=== PATIENT | female | born 1965 | race Caucasian/White ===

== ENCOUNTER → 2018-09-09 08:54 | Emergency (ER) | payer OTHER ==
[~2018-09-09 08:54] MED LIST: Ciprofloxacin TAB* 250 MG PO ONE; Iohexol 300* (CONTRAST) 10 ML SDV IV ONE; Morphine INJ* 4 MG/ML 1 ML SYRINGE (NEW SYRINGE VERSION) IV ONE; NS 0.9% 1000 ML* 1,000 ML IV ONE; Ondansetron INJ* 2 MG/ML VIAL IV ONE; metroNIDAZOLE TAB* 250 MG PO ONE
--- OUTSIDE RECORDS SUMMARY | 2018-09-09 09:45 | XMS REPORT | Continuity of Care Document ---
:1965 External Reference #:[id number] Author Name Kyle Puentes Care Team Providers Name Role Phone Domi Tapia MD Care Team Information Chief Lifestyle Officer Unavailable Nacho Barrios MD Primary Care Physician Unavailable Payers Type Date Identification Numbers Payment Provider Subscriber Policy Number: [id number] [facility] Mackenzie Piedra PayID: [id number] [address] [place] [address] Advance Directives Description No Information Available Problems Date Description Provider Status Onset: 06/15/2018 Common variable agammaglobulinemia Hilario Rose MD Active Family History Description No Information Available Social History Type Date Description Comments Sex Unknown Allergies, Adverse Reactions, Alerts Date Description Reaction Status Severity Comments 06/15/2018 Penicillin Active Sensitivity Medications Medication Date Status Form Strength Qnty SIG Indications Ordering Provider Lansoprazole Active Capsules DR 15mg 1 by Unknown /0000 mouth every day Valacyclovir HCL Active Tablets 500mg Once a Unknown /0000 day Levothyroxine Active Tablets 50mcg 1 by Unknown Sodium /0000 mouth every day Cholestyramine Active Packet 4gm once a Unknown Light /0000 day Sumatriptan Active Solution 20mg/Act [place] in Unknown /0000 nostril daily prn Hydrochlorothiazide Active Tablets 25mg once a Unknown /0000 day Fluticasone Active Suspension 50mcg/Act spray 2 Unknown Propionate /0000 sprays in each nostril daily Clonazepam Active Tablets 1mg prn Unknown /0000 Dispers Trintellix Active Tablets 20mg Once a Unknown /0000 day Prazosin HCL Active Capsules 1mg 2mg at Unknown /0000 bedtime Norethindrone Active Tablets 0.35mg Unknown / Probiotic Active Capsules Unknown Acidophilus 0000 Vitamin C Active Capsules 500-400mg Unknown W/Vitamin E /0000 -Unit Buspirone HCL Active Tablets 10mg Unknown /0000 Melatonin Active Capsules 10mg 1 by Unknown /0000 mouth every night at bedtime with added L-theani ne Bupropion HCL Active Tablets 2 tabs Unknown /0000 once a day by mouth Immunizations CPT Code Status Date Vaccine Lot # [id number] Given 06/15/2018 Pneumococcal Vaccine 2Yrs Or Older [id number] Vital Signs Date Vital Result Comment 08/24/2018 9:40am BP Systolic 132 mmHg 68 Height 61 inches 5'1" Weight 300.00 lb BMI (Body Mass Index) 56.7 kg/m2 Heart Rate 94 /min Respiratory Rate 18 /min O2 % BldC Oximetry 97 % 08/03/2018 8:32am BP Systolic 116 mmHg BP Diastolic 82 mmHg Height 61 inches 5'1" Weight 295.00 lb BMI (Body Mass Index) 55.7 kg/m2 Heart Rate 86 /min Respiratory Rate 16 /min Body Temperature 98.6 F O2 % BldC Oximetry 98 % 06/15/2018 9:19am BP Systolic 130 mmHg BP Diastolic 82 mmHg Height 61 inches 5'1" Weight 295.00 lb BMI (Body Mass Index) 55.7 kg/m2 Heart Rate 98 /min Respiratory Rate 19 /min Body Temperature 98.1 F O2 % BldC Oximetry 97 % Results Description No Information Available Procedures Description No Information Available Encounters Type Date Location Provider Dx Diagnosis Office Visit 08/03/2018 TIMBO Aiken D83.8 Other common variable 8:30a immunodeficiencies Office Visit 06/15/2018 Luis Fernando Daigle3.8 Other common variable 9:00a MD [place] immunodeficiencies Plan of Treatment 08/03/2018 - Vijay Mcfarland PAD83.8 Other common variable immunodeficienciesComments:Patient with common variable immune deficiency. Patient's total IgG is 377 mg/dL. Patient had a positive response to tetanus and diphtheria. Patient did not show any significant increased titer to post- pneumococcal vaccine.Patient is a candidate for Gamunex IVIG infusion, 55 g, monthly. Patient understands and agrees to receive monthly antibody infusions ( approx duration, 3 hours) to boost her immune system. We will seek prior authorization from her insurance company to begin this process.Patient to follow up with Dr. Tapia on 08/25/18. Greater than 50% of the 25-minute visit was spent in discussion of the testing results and treatment options.
--- OUTSIDE RECORDS SUMMARY | 2018-09-09 09:45 | XMS REPORT ---
:1965 External Reference #:[id number] Author Organization [employer] Address [address] [place] [address] [place] [address] Phone [phone] Care Team Providers Name Role Phone Nacho Barrios MD Primary Care Physician Unavailable Payers Type Date Identification Numbers Payment Provider Subscriber Commercial Policy Number: [id number] Marcelino Piedra Group Number: [id number] [address] PayID: [id number] [place] [address] Problems Description No Information Family History Date Family Member(s) Problem(s) Comments Father Sleep Apnea Father Heart Disease Father Hypertension Father Hypercholesterolemia Father Obesity Father Prostate Cancer Mother Lymphoma Hx of since 1994 Siblings 3 2 brothers and 1 sister. Sister has 3 lung nodules Social History Type Date Description Comments Marital Status Lives With Alone Occupation Disabled Cigarette Use Former Cigarette Smoker Smoked 1/2 ppd for 5 years ETOH Use Denies alcohol use Smoking Patient is a former smoker Recreational Drug Use Denies Drug Use Daily Caffeine Does Not Consume Caffeine Exercise Type/Frequency Exercises rarely Allergies, Adverse Reactions, Alerts Date Description Reaction Status Severity Comments 04/18/2018 Penicillin active 04/18/2018 Sulfa Antibiotics active Medications Medication Date Status Form Strength Qnty SIG Indications Ordering Provider Valacyclovir HCL Active Tablets 500mg 1 tab po Unknown /0000 qd Levothyroxine Active Tablets 75mcg 1 tab qam Unknown Sodium /0000 Cholestyramine Active Packet 4gm 1 packet Unknown /0000 by mouth as directed and by mouth daily Sumatriptan Active Solution 20mg/Act spray 20mg Unknown /0000 in nose daily prn for migraines Fluticasone Active Suspension 50mcg/Act 2 sprays Unknown in nostrils daily Clonazepam Active Tablets 1mg 1 tab po prn Trintellix Active Tablets 20mg 1 po qd Prazosin HCL Active Capsules 1mg 2mg every bedtime prn for PTSD/night bauer Lansoprazole Active Capsules DR 15mg 1 by mouth every day Hydrochlorothiazi Active Tablets 25mg 1 by mouth Unknown every day prn Marly Active Tablets 0.35mg 1 qd Melatonin Active Tablets 1 tab by mouth daily at bedtime Vitamin C Active Tablets 500mg 1 by mouth every day Probiotic Active Capsules 1 by mouth every day Bupropion HCL Active Tablets 10mg take one tablet by mouth twice a day Vital Signs Date Vital Result Comment 08/25/2018 Height 61 inches 5'1" Weight 299.38 lb Heart Rate 84 /min BP Systolic Sitting 116 mmHg Rue large cuff BP Diastolic Sitting 84 mmHg Rue large cuff Respiratory Rate 16 /min O2 % BldC Oximetry 97 % BMI (Body Mass Index) 56.6 kg/m2 07/07/2018 Height 61 inches 5'1" Weight 299.00 lb Heart Rate 104 /min BP Systolic Sitting 110 mmHg BP Diastolic Sitting 64 mmHg Respiratory Rate 14 /min O2 % BldC Oximetry 96 % BMI (Body Mass Index) 56.5 kg/m2 05/23/2018 Height 61 inches 5'1" Weight 293.00 lb Heart Rate 80 /min BP Systolic Sitting 118 mmHg BP Diastolic Sitting 78 mmHg Respiratory Rate 14 /min O2 % BldC Oximetry 96 % BMI (Body Mass Index) 55.4 kg/m2 04/18/2018 Height 61 inches 5'1" Weight 294.00 lb Heart Rate 64 /min BP Systolic Sitting 116 mmHg BP Diastolic Sitting 80 mmHg Respiratory Rate 14 /min O2 % BldC Oximetry 97 % BMI (Body Mass Index) 55.5 kg/m2 Neck Circumference in inches 19 Results Test Date Test Result H/L Range Note Laboratory test finding 05/03/2018 Point of Care Glucose 93 mg/dL 70-100 1 Laboratory test finding 04/18/2018 Anti Nuclear Antibody 0.1 U 2 Anca Panel For Vasculitis 04/18/2018 Myeloperoxidase AB < 0.2 U 3 Proteinase 3 AB < 0.2 U 4 Laboratory test finding 04/18/2018 Angiotensin Converting Enzyme 33 U/L 8 - 53 5 Aspergillus Igg Antibodies TNP () 6 CBC Auto Diff 04/18/2018 White Blood Count 7.4 10^3/uL 3.5-10.8 Red Blood Count 4.87 10^6/uL 4.0-5.4 Hemoglobin 13.8 g/dL 12.0-16.0 Hematocrit 40 % 35-47 Mean Corpuscular Volume 83 fL 80-97 Mean Corpuscular Hemoglobin 28 pg 27-31 Mean Corpuscular HGB Conc 34 g/dL 31-36 Red Cell Distribution Width 14 % 10.5-15 Platelet Count 247 10^3/uL 150-450 Mean Platelet Volume 8.0 um3 7.4-10.4 Abs Neutrophils 4.4 10^3/uL 1.5-7.7 Abs Lymphocytes 2.3 10^3/uL 1.0-4.8 Abs Monocytes 0.4 10^3/uL 0-0.8 Abs Eosinophils 0.2 10^3/uL 0-0.6 Abs Basophils 0.1 10^3/uL 0-0.2 Abs Nucleated RBC 0 10^3/uL Granulocyte % 60.2 % 38-83 Lymphocyte % 31.2 % 25-47 Monocyte % 5.8 % 0-7 Eosinophil % 2.1 % 0-6 Basophil % 0.7 % 0-2 Nucleated Red Blood Cells % 0 Laboratory test finding 04/18/2018 Anti Ssa/Ro <0.2 U 7 Anti SSB LA <0.2 U 8 C Reactive Protein 12.30 mg/L High < 5.00 9 Centromere Auto Abs <0.2 U 10 Hypersensitivity Pneumonitis 04/18/2018 Aspergillus fumigatus 18.9 mg/L < =102 11 IgG Ab Micropolyspora faeni IgG Ab 2.6 mg/L <=13.2 12 Thermoactinomyces vulgaris IgG 4.4 mg/L <=23.9 13 Quantiferon Gold TB 04/18/2018 QuantiFERON-Tb Gold Plus Negative Negative 14 TB1 Ag minus Nil Result 0 IU/mL TB2 Ag minus Nil Result 0.01 IU/mL TB Mitogen minus Nil Result > 10.00 IU/mL TB Nil Result 0.02 IU/mL 15 Laboratory test finding 04/18/2018 Rheumatoid Factor < 10 IU/mL <15 Immunoglobulins Serum Quant 04/18/2018 Immunoglobulin G 396 mg/dL 767 - 1590 16 Immunoglobulin M 210 mg/dL 37 - 286 Immunoglobulin A 42 mg/dL 61 - 356 Scleroderma AB (SCL70) 04/18/2018 Scleroderma Ab <0.2 U 17 1 Global Ceo: [id number] 2 REFERENCE VALUE <=1.0 (Negative) Test Performed by: [address] [address] 3 REFERENCE VALUE <0.4 (Negative) 4 REFERENCE VALUE <0.4 (Negative) Test Performed by: [address] [address] 5 Test Performed by: [address] [address] 6 Cancelled due to duplicate test on this order Test Performed by: [address] [address] 7 REFERENCE VALUE <1.0 (Negative) Test Performed by: [address] [address] 8 REFERENCE VALUE <1.0 (Negative) Test Performed by: [address], [place] [address] 9 Acute inflammation: >10.00 10 REFERENCE VALUE <1.0 (Negative) Test Performed by: [facility] - [address] [address] 11 ADDITIONAL INFORMATION This test was developed and its performance characteristics determined by [facility] in a manner consistent with CLIA requirements. This test has not been cleared or approved by the U.S. Food and Drug Administration. 12 ADDITIONAL INFORMATION This test was developed using an analyte specific reagent. Its performance characteristics were determined by [facility] in a manner consistent with CLIA requirements. This test has not been cleared or approved by the U.S. Food and Drug Administration. 13 ADDITIONAL INFORMATION This test was developed using an analyte specific reagent. Its performance characteristics were determined by [facility] in a manner consistent with CLIA requirements. This test has not been cleared or approved by the U.S. Food and Drug Administration. Test Performed by: [facility] - [address] [address] 14 No interferon-gamma response to M. tuberculosis antigens was detected. Infection with M. tuberculosis is unlikely. A single negative result does not exclude infection with M. tuberculosis. In patients at high risk for M.tuberculosis infection, a second test should be considered in accordance with the 2017 ATS/IDSA/CDC Clinical Practice Guidelines for Diagnosis of Tuberculosis in Adults and Children [Eveline RUBIN et. al. Clin. Infect. Dis. 2017;64(2):111-115]. 15 Test Performed by: [facility] [employer] - [facility] [address] [place] [address] 16 Test Performed by: [facility] [address] [place] [address] 17 REFERENCE VALUE <1.0 (Negative) Test Performed by: [facility] [address] [place] [address] Procedures Date CPT Code Description Status 06/22/2018 73212 Polysomnography Sleep Staging 4+ Parameters Completed Encounters Type Date Location Provider CPT E/M Dx Office Visit 07/07/2018 [facility] [address] G47.33 8:30a [facility] J98.4 Z68.43 Office Visit 05/23/2018 9:15a [facility] [address] J98.4 [facility] D80.8 K21.9 R06.83 Z68.43 Office Visit 04/18/2018 7:30a [facility] [address] J98.4 [facility] R06.83 E66.01 K21.9 Z68.43 Plan of Care Future Appointment(s):12/08/2018 1:45 pm - Domi Tapia MD at [facility]08/25/2018 - Domi Tapia MDJ98.4 Other disorders of lungFollow up:3 months , CT chest pfdtoJ45.33 Obstructive sleep apnea (adult ) (pediatric)Z68.43 Body mass index (BMI) 50-59.9 , adult
--- OUTSIDE RECORDS SUMMARY | 2018-09-09 09:45 | XMS REPORT | Continuity of Care Document ---
:1965 External Reference #:[id number] Author Name Hilario Rose MD Address [address] [place] [address] Care Team Providers Name Role Phone Domi Tapia MD Care Team Information Ground Crewman Unavailable Nacho Barrios MD Primary Care Physician Unavailable Payers Type Date Identification Numbers Payment Provider Subscriber Policy Number: [id number] [facility] Mackenzie Piedra PayID: [id number] [address] [place] [address] Advance Directives Description No Information Available Problems Date Description Provider Status Onset: 06/15/2018 Common variable agammaglobulinemia Hilario Rose MD Active Family History Description No Information Available Social History Type Date Description Comments Sex Unknown Smoke-Free Home is smoke-free Pets 1 cat Tobacco Use Start: Unknown Patient has never smoked Tobacco Use Start: Unknown No Second Hand Smoke Exposure Smoking Status Reviewed: 08/24/18 No Second Hand Smoke Exposure Allergies, Adverse Reactions, Alerts Date Description Reaction [...] Light /0000 day Sumatriptan Active Solution 20mg/Act [place] in Unknown /0000 nostril daily prn Hydrochlorothiazide Active Tablets 25mg once a Unknown / day Fluticasone Active Suspension 50mcg/Act spray 2 Unknown Propionate sprays in each nostril daily Clonazepam Active Tablets 1mg prn Dispers Trintellix Active Tablets 20mg Once a Unknown day Prazosin HCL Active Capsules 1mg 2mg at Unknown bedtime Norethindrone Active Tablets 0.35mg Unknown Probiotic Active Capsules Unknown Acidophilus 0000 Vitamin C Active Capsules 500-400mg Unknown W/Vitamin E /0000 -Unit Buspirone HCL Active Tablets 10mg Unknown Melatonin Active Capsules 10mg 1 by Unknown / mouth every night at bedtime with added L-theani ne Bupropion HCL Active Tablets 2 tabs Unknown / once a day by mouth Immunizations CPT Code Status Date Vaccine Lot # [id number] Given 06/15/2018 Pneumococcal Vaccine 2Yrs Or Older [id number] Vital Signs Date Vital Result Comment 08/24/2018 [...] Date Location Provider Dx Diagnosis Office Visit 08/24/2018 Luis Fernando Paige D83.8 Other common variable 9:30a MD [place] immunodeficiencies Office Visit 08/03/2018 TIMBO Aiken D83.8 Other common variable 8:30a immunodeficiencies Office Visit 06/15/2018 Luis Fernando Paige D83.8 Other common variable 9:00a MD [place] immunodeficiencies Plan of Treatment No Information Available
--- NOTE | 2018-09-09 09:49 | ED ---
Abdominal Pain/Female - HPI Summary HPI Summary: Pt. is a 52-year-old female who presents emergency department for left lower quadrant abdominal pain times several days. Pt. states she has a history of diverticulitis and has had a perforation the past. Denies associated symptoms of fever, chills, nausea, vomiting, diarrhea. Symptoms are moderate in severity. Movement makes symptoms worse. Nothing makes symptoms better. - History of Current Complaint Chief Complaint: EDAbdPain Stated Complaint: ABD PAIN Time Seen by Provider: 09/09/18 09:03 Hx Obtained From: Patient Pain Intensity: 9 Allergies/Adverse Reactions: Allergies Allergy/AdvReac Type Severity Reaction Status Date / Time Penicillins Allergy Unknown Unknown Verified 09/09/18 09:47 Reaction Details Home Medications: Home Medications Ascorbic Acid TAB* [Vitamin C TAB*] 500 mg PO DAILY 09/09/18 [History Confirmed 09/09/18] Cholecalciferol CAP/TAB(NF) [Vitamin D3 CAP/TAB (NF)] 25 mcg PO DAILY 09/09/18 [ History Confirmed 09/09/18] Cholestyramine Resin* [Questran*] 4 gm PO DAILY PRN 09/09/18 [History Confirmed 09/09/18] Fluticasone NASAL SPRAY 50MCG* [Flonase NASAL SPRAY 50MCG*] 2 spray BOTH NARES DAILY 09/09/18 [History Confirmed 09/09/18] Hydrochlorothiazide TAB* [Hydrodiuril TAB*] 25 mg PO DAILY PRN 09/09/18 [ History Confirmed 09/09/18] Lactobacillus Acidophilus [Probiotic Acidophilus] 0.5 mg PO DAILY 09/09/18 [ History Confirmed 09/09/18] Levothyroxine TAB* [Synthroid TAB*] 75 mcg PO AC 09/09/18 [History Confirmed 11/15] Melatonin/Pyridoxine HCl (B6) [Melatonin] 1 tab PO BEDTIME 09/09/18 [History Confirmed 09/09/18] Norethindrone (NF) [Kailyn (NF)] 0.35 mg PO DAILY 09/09/18 [History Confirmed 09/09/18] Prazosin CAP* [Minipress CAP*] 2 mg PO BEDTIME 09/09/18 [History Confirmed 09/09] SUMAtriptan [Imitrex] 20 mg INTRANASAL DAILY PRN 09/09/18 [History Confirmed 11/15] ValACYclovir (*) [Valtrex 500 mg (*)] 500 mg PO DAILY 09/09/18 [History Confirmed 09/09/18] Vortioxetine (NF) [Trintellix (NF)] 20 mg PO DAILY 09/09/18 [History Confirmed 09/09/18] busPIRone TAB* [Buspar TAB*] 10 mg PO BID PRN 09/09/18 [History Confirmed ] clonazePAM TAB(*) [KlonoPIN TAB(*)] 1 mg PO BID PRN MDD 2 09/09/18 [History Confirmed 09/09/18] PMH/Surg Hx/FS Hx/Imm Hx Previously Healthy: Yes Endocrine/Hematology History: Reports: Hx Thyroid Disease - HYPO GI History: Reports: Hx Diverticulosis, Hx Gastroesophageal Reflux Disease, Hx Hiatal Hernia Sensory History: Denies: Hx Contacts or Glasses, Hx Hearing Aid - [facility] LEFT EAR Opthamlomology History: Denies: Hx Contacts or Glasses Neurological History: Reports: Hx Migraine - LAST ONE 8 MONTHS AGO Psychiatric History: Reports: Hx Anxiety, Hx Depression - Cancer History Hx Chemotherapy: No Hx Radiation Therapy: No - Surgical History Surgery Procedure, Year, and Place: SINUS SURGERY 1999 gb removed 2013. WISDOM TEETH REMOVAL 1988 Hx Anesthesia Reactions: No - Immunization History Immunizations Up to Date: Yes Infectious Disease History: No Infectious Disease History: Denies: Traveled Outside the [place] in Last 30 Days - Family History Known Family History: Positive: Other - noncontributory - Social History Occupation: Unemployed Lives: Alone Alcohol Use: None Substance Use Type: Reports: None Smoking Status (MU): Former Smoker Type: Cigarettes Length of Time of Smoking/Using Tobacco: APPROX 6 YEARS Have You Smoked in the Last Year: No Review of Systems Positive: Chills Cardiovascular: Negative Respiratory: Negative Positive: Abdominal Pain. Negative: Vomiting, Diarrhea, Nausea Genitourinary: Negative Negative: dysuria Neurological: Negative All Other Systems Reviewed And Are Negative: Yes Physical Exam Triage Information Reviewed: Yes Vital Signs On Initial Exam: Initial Vitals Temp Pulse Resp BP Pulse Ox 98.6 F 108 22 125/77 94 09/09/18 08:56 09/09/18 08:56 09/09/18 08:56 09/09/18 08:56 09/09/18 08:56 Vital Signs Reviewed: Yes Appearance: Positive: Well-Appearing - Patient lying in bed in no acute distress. Friend present. Skin: Positive: Warm, Dry Head/Face: Positive: Normal Head/Face Inspection Eyes: Positive: Normal, EOMI Neck: Positive: Supple Respiratory/Lung Sounds: Positive: Clear to Auscultation, Breath Sounds Present Cardiovascular: Positive: Normal, RRR Abdomen Description: Positive: Other: - Morbidly obese. Abdomen is soft with pain to palpation to the left lower quadrant and mildly to the right lower quadrant. No rebound tenderness or guarding. Neurological: Positive: Normal, CN Intact II-III Psychiatric: Positive: Affect/Mood Appropriate Diagnostics - Vital Signs Vital Signs Temp Pulse Resp BP Pulse Ox 09/09/18 09:34 18 09/09/18 08:56 98.6 F 108 22 125/77 94 - Laboratory Result Diagrams: 09/09/18 09:39 09/09/18 09:39 Lab Statement: Any lab studies that have been ordered have been reviewed, and results considered in the medical decision making process. Abdominal Pain Fem Course/Dx - Course Course Of Treatment: Pt. presenting to the ER for left lower quadrant abdominal pain. She is afebrile stable vital signs. She is well-appearing. Will patient IV fluids and give IV morphine for pain. Pending labs and CT scan for further evaluation. Labs are unremarkable other than elevated CRP. CT abd.pelvis per radiology: IMPRESSION: FINDINGS CONSISTENT WITH DIVERTICULITIS OF THE SIGMOID COLON WITHOUT EVIDENCE OF PERIDIVERTICULAR ABSCESS. PERICOLONIC INFILTRATION OF FAT AND FOCAL WALL THICKENING IS NOTED. Results were discussed with patient. She would like to try outpatient treatment at this time. Started on Cipro and Flagyl, hydrocodone for pain. Advised clear liquid diet. To call PCP for follow-up appointment on Wednesday. To return to ER over the weekend for increased pain, fever, vomiting or if concerned. Patient understands and agrees with plan. - Diagnoses Differential Diagnosis: Positive: Appendicitis, Constipation, Diverticulitis, Urinary Tract Infection Provider Diagnoses: Diverticulitis Discharge - Sign-Out/Discharge Documenting (check all that apply): Patient Departure - Discharge Plan Condition: Good Disposition: HOME Prescriptions: Ciprofloxacin TAB* [Cipro 500 MG TAB*] 500 mg PO BID #20 tab Hydrocodone/Acetaminophen [Hydrocodone/Acetaminophen 5-325 mg] 1 tab PO Q6H #12 tab MDD 4tablets metroNIDAZOLE [Flagyl 500 MG TAB] 500 mg PO TID #30 tab Patient Education Materials: Diverticulitis (ED), Diverticulitis Diet (ED) Referrals: Nacho Barrios MD [Primary Care Provider] - Additional Instructions: Schedule a follow up appointment with PCP on Wednesday Take medication as directed Clear liquid diet Return to ER for increased pain, fever, vomiting, or if concerned - Billing Disposition and Condition Condition: GOOD Disposition: Home
[2018-09-09 09:50] LABS: ABS Basophils 0.1 10^3/ul (0-0.2); ABS Eosinophils 0.2 10^3/ul (0-0.6); ABS Lymphocytes 1.7 10^3/ul (1.0-4.8); ABS Monocytes 0.4 10^3/ul (0-0.8); ABS Neutrophils 5.9 10^3/ul (1.5-7.7); ABS Nucleated RBC 0 10^3/ul; Eosinophil % 1.9 % (0-6); Hematocrit 39 % (35-47); Hemoglobin 13.4 g/dl (12.0-16.0); Lymphocyte % 20.4 % (25-47); Mean Corpuscular HGB Conc 34 g/dl (31-36); Mean Corpuscular Hemoglobin 28 pg (27-31); Mean Corpuscular Volume 81 fL (80-97); Mean Platelet Volume 7.8 um3 (7.4-10.4); Nucleated Red Blood Cells % 0.1; Platelet Count 225 10^3/ul (150-450); Red Blood Count 4.86 10^6/ul (4.00-5.40); Red Cell Distribution Width 14 % (10.5-15); White Blood Count 8.2 10^3/ul (3.5-10.8)
[2018-09-09 10:10] LABS: EGFR Non-African American 67.7 (>60)
[2018-09-09 11:07] LABS: Urine Appearance Cloudy; Urine Blood Negative (Negative); Urine Color Yellow; Urine Ketones Negative (Negative); Urine Protein Negative (Negative); Urine Specific Gravity 1.014 (1.010-1.030); Urine Urobilinogen Negative (Negative)
--- NOTE | 2018-09-09 12:36 | RAD ---
Indication: Left lower quadrant pain. Contrast: Administered 150.4 ml of OMNIPAQUE 300 mg/ml CT of the abdomen and pelvis was performed after oral and IV contrast administration. Coronal and sagittal reconstructed images were obtained. Comparison is made with previous exam dated August 28, 2016, prior PET/CT dated May 03, 2018. The lung bases demonstrate small nodules in the left lower lobe measuring up to 7 mm. Nodule in the right lower lobe measures up to 1.9 cm. Nodule right ovary the hemidiaphragm measures approximate 5 mm. Tiny nodule over the right hemidiaphragm is unchanged. The heart demonstrates no pericardial effusion. Liver is normal in size. There are no focal lesions or intrahepatic duct dilatation noted. The patient is status post cholecystectomy. The common duct is not dilated. The pancreas demonstrates no mass or pancreatic duct dilatation. The spleen is normal in size. No adrenal masses are noted. The kidneys demonstrate symmetric nephrograms without focal lesions. Aorta and inferior vena cava are unremarkable. No retroperitoneal adenopathy is noted. Evaluation of the pelvis demonstrates focal wall thickening of the sigmoid colon in the low pelvis towards the left. Reticulation of the adjacent fat is noted. No evidence of peridiverticular abscess is noted. The urinary bladder is unremarkable with no evidence of foci of air. The uterus is otherwise unremarkable. No adnexal masses are noted. The bony structures are grossly unremarkable. IMPRESSION: FINDINGS CONSISTENT WITH DIVERTICULITIS OF THE SIGMOID COLON WITHOUT EVIDENCE OF PERIDIVERTICULAR ABSCESS. PERICOLONIC INFILTRATION OF FAT AND FOCAL WALL THICKENING IS NOTED. THERE ARE MULTIPLE PULMONARY NODULES. THESE ARE ESSENTIALLY UNCHANGED SINCE PRIOR PET/CT DATED APRIL 2018.
[2018-09-09 13:50] VITALS: BP 107/75
== END | disposition home or self-care (01) ==
LOC: ED 08:54
DX: K57.32 Diverticulitis of large intestine without perforation or abscess without bleeding (principal); R91.1 Solitary pulmonary nodule; E03.9 Hypothyroidism, unspecified; G43.909 Migraine, unspecified, not intractable, without status migrainosus; F41.9 Anxiety disorder, unspecified; F32.9 Major depressive disorder, single episode, unspecified; Z90.49 Acquired absence of other specified parts of digestive tract; Z88.0 Allergy status to penicillin; Z87.891 Personal history of nicotine dependence
CPT/HCPCS: 36415; 74177; 80053; 81003; 83605; 83690; 85025; 86140; 87040; 96361; 96374; 96375; 99283; A9270-GY; J2270; J2405; Q9967

== ENCOUNTER 2020-03-14 17:02 | Emergency (ER) | payer OTHER ==
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
[2020-03-14] MEDS ORDERED: cefTRIAXone VIAL(*) 250 MG VIAL IM ONE (17:35)
[2020-03-14] MEDS ORDERED: Raltegravir* 400 MG TAB PO ONE ×2 (17:35→17:38)
[2020-03-14] MEDS ORDERED: metroNIDAZOLE TAB* 250 MG PO ONE (17:35)
[2020-03-14] MEDS ORDERED: Tenofovir/Emtricitab 200/300 * TAB PO ONE ×2 (17:35→17:37)
[2020-03-14] MEDS ORDERED: Azithromycin TAB* 250 MG PO ONE (17:35)
[2020-03-14] MEDS ORDERED: Ondansetron ODT TAB* 4 MG PO ONE (17:37)
[2020-03-14] MEDS ORDERED: Lidocaine 1% MPF ** 5 ML VIAL ONE (19:47)
[2020-03-14] MEDS ORDERED: metroNIDAZOLE * 500 MG TABLET PO ONE (20:00)
[2020-03-14 20:50] LABS: ABS Basophils 0.1 10^3/ul (0-0.2); ABS Eosinophils 0.2 10^3/ul (0-0.6); ABS Monocytes 0.6 10^3/ul (0-0.8); ABS Neutrophils 4.5 10^3/ul (1.5-7.7); Eosinophil % 2.5 %; Hematocrit 37 % (35-47); Hemoglobin 13.2 g/dL (12.0-16.0); Mean Corpuscular HGB Conc 35 g/dL (31-36); Mean Corpuscular Hemoglobin 28 pg (27-31); Mean Corpuscular Volume 79 fL (80-97); Mean Platelet Volume 8.1 fL (7.4-10.4); Platelet Count 241 10^3/uL (150-450); Red Blood Count 4.74 10^6 /uL (3.70-4.87); Red Cell Distribution Width 15 % (10-15); White Blood Count 7.4 10^3/uL (3.5-10.8)
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
[2020-03-14 21:09] LABS: Albumin 3.7 g/dL (3.2-5.2); Albumin/Globulin Ratio 1.3 (1-3); BUN/Creatinine Ratio 12.1 (8-20); EGFR African American 78.2 (>60); EGFR Non-African American 64.7 (>60); Globulin 2.8 g/dL (2-4); Potassium 3.8 mmol/L (3.5-5.0); Total Bilirubin 0.3 mg/dL (0.2-1.0); Total Protein 6.5 g/dL (6.4-8.9)
[2020-03-14 21:16] LABS: HCG Pregnancy 2.63 mIU/mL
[2020-03-14] MEDS ORDERED: Iohexol 300* (CONTRAST) 10 ML SDV IV ONE (21:54)
[2020-03-14 22:04] LABS: Hepatitis B Surface Antigen Nonreactive (Nonreactive)
[2020-03-14 22:21] LABS: Hepatitis B Surface Ab Immune (Immune); Hepatitis C Antibody Negative (Negative)
[2020-03-14] MEDS ORDERED: Sulfamethox/Trimethoprim DS 800/160* TAB PO ONE (22:59)
[2020-03-15 00:39] VITALS: BP 119/82
== END 2020-03-15 00:30 | disposition home or self-care (01) ==
LOC: ED 17:02
DX: R10.9 Unspecified abdominal pain (principal); R07.81 Pleurodynia; Y09 Assault by unspecified means
CPT/HCPCS: 36415; 71046; 74177; 80053; 83605; 84702; 85025; 86706; 86803; 87340; 99285; A9270-GY; J0696; Q9967

== ENCOUNTER 2024-05-20 22:52 | Observation (INO) ==
[2024-05-20] MEDS: Lactated Ringers 1000 ml BAG 1,000 ML IV ONE (23:32)
[2024-05-20 23:35] LABS: ABS Basophils 0.1 10^3/uL (0.0-0.1); ABS Eosinophils 0.2 10^3/uL (0.0-0.5); ABS Lymphocytes 2.4 10^3/uL (1.0-4.8); ABS Monocytes 0.5 10^3/uL (0.0-0.9); ABS Neutrophils 3.7 10^3/uL (1.5-7.6); Eosinophil % 2.7 %; Hematocrit 41.2 % (35-45); Hemoglobin 14.3 g/dL (11.5-14.3); Lymphocyte % 34.9 %; Mean Corpuscular Hemoglobin 27.8 pg (27-33); Mean Corpuscular Hgb Conc 34.7 g/dL (31-36); Mean Corpuscular Volume 80.4 fL (80-97); Mean Platelet Volume 8.5 fL (7.5-11.2); Platelet Count 253 10^3/uL (150-450); Red Blood Count 5.13 10^6/uL (3.63-4.92); Red Cell Distribution Width 15.2 % (12-17); White Blood Count 6.8 10^3/uL (3.8-11.8)
[2024-05-20] MEDS: Morphine 4 MG/ML VIAL (1 ml) IV ONE (23:47)
[2024-05-20] MEDS: Ondansetron 4 mg VIAL 2 MG/ML 2 ml VIAL IV ONE (23:47)
[2024-05-21 00:02] LABS: Urine Appearance Turbid; Urine Bilirubin Negative (Negative); Urine Blood Negative (Negative); Urine Color Yellow; Urine Glucose Negative (Negative); Urine Ketones Negative (Negative); Urine Nitrite Negative (Negative); Urine Protein Trace (Negative); Urine Specific Gravity 1.027 (1.002-1.030); Urine Urobilinogen Negative (Negative); Urine pH 5.5 (5.0-8.0)
[2024-05-21 00:11] LABS: Urine Bacteria Absent /HPF (Absent); Urine Red Blood Cell Trace(0-2/hpf) /HPF (0-Trace); Urine Squamous Epithelial Cell Present /HPF (Absent); Urine White Blood Cell 2+(11-20/hpf) /HPF (0-Trace)
[2024-05-21 00:21] LABS: Albumin/Globulin Ratio 1.3 (1-3); C Reactive Protein 12.1 mg/L (<8.01); Creatinine, Serum 1.06 mg/dL (0.51-0.95); Globulin 3.1 g/dL (2-4); Potassium 3.9 mmol/L (3.5-5.0); Total Bilirubin 0.3 mg/dL (0.2-1.0); Total Protein 7.1 g/dL (6.4-8.9); eGFR CKD-EPI 61.3 (>60)
[2024-05-21] MEDS: Morphine 4 MG/ML VIAL (1 ml) IV ONE (01:27)
[2024-05-21] MEDS: Iodixanol (CONTRAST) 320 MG/ML 100 ML SDV IV ONE (02:13)
[2024-05-21] MEDS: HYDROmorphone 1 MG/1 ML SYRINGE IV SLOW PU ONE (04:56)
[2024-05-21] MEDS: Piperacillin/Tazobac 3.375 BAG 3.375 GM/100 ML BAG IV ONE (04:56)
[2024-05-21] MEDS ORDERED: Zosyn per Pharmacy NOTE FOLLOW UP SCH (06:00)
[2024-05-21] MEDS: Lactated Ringers 1000 ml BAG 1,000 ML IV SCH (06:34)
[2024-05-21] MEDS: Enoxaparin 40 MG/0.4 ML SYR SUBCUT SCH (07:52)
[2024-05-21] MEDS: ZOSYN 3.375 GM Q8H per EXTENDED INFUSION IV SCH ×2 (07:52→15:17)
[2024-05-21] MEDS: Cholecalciferol (VIT D3) 1,000 unit TAB PO SCH (07:53)
[2024-05-21] MEDS: CMCS:Vortioxetine 10 mg TAB (NF) PO SCH (08:35)
[2024-05-21] MEDS: NS 0.9% 1000 ml BAG 1,000 ML IV SCH (14:29)
[2024-05-21] MEDS: HYDROmorphone 0.5 MG/0.5 ML SYRINGE IV SLOW PU PRN (21:16)
[2024-05-22 07:12] LABS: ABS Eosinophils 0.2 10^3/uL (0.0-0.5); ABS Lymphocytes 1.5 10^3/uL (1.0-4.8); ABS Monocytes 0.4 10^3/uL (0.0-0.9); Eosinophil % 3.1 %; Hematocrit 36.7 % (35-45); Hemoglobin 12.4 g/dL (11.5-14.3); Mean Corpuscular Hemoglobin 27.3 pg (27-33); Mean Corpuscular Hgb Conc 33.7 g/dL (31-36); Mean Corpuscular Volume 80.9 fL (80-97); Mean Platelet Volume 8.6 fL (7.5-11.2); Platelet Count 183 10^3/uL (150-450); Red Blood Count 4.54 10^6/uL (3.63-4.92); Red Cell Distribution Width 15.5 % (12-17); White Blood Count 6.1 10^3/uL (3.8-11.8)
[2024-05-22 07:38] LABS: Albumin 3.3 g/dL (3.2-5.2); Albumin/Globulin Ratio 1.3 (1-3); Calcium 8.3 mg/dL (8.6-10.3); Creatinine, Serum 0.98 mg/dL (0.51-0.95); Globulin 2.6 g/dL (2-4); Potassium 3.9 mmol/L (3.5-5.0); Total Bilirubin 0.4 mg/dL (0.2-1.0); Total Protein 5.9 g/dL (6.4-8.9); eGFR CKD-EPI 67.3 (>60)
[2024-05-22 09:15] LABS: Magnesium 1.5 mg/dL (1.9-2.7)
[2024-05-22] MEDS: Ondansetron 4 mg VIAL 2 MG/ML 2 ml VIAL IV PRN (09:17)
[2024-05-22] MEDS: Magnesium Sulf 4 GM/100 ML IV 4,000 MG/100 ML BAG IVPB ONE (10:24)
[2024-05-24 09:54] VITALS: BP 100/64
== END 2024-05-24 13:10 | disposition home or self-care (01) ==
LOC: ED 22:52 → EDHOLD 22:52 → SUATTDRO 05-21 05:38 → EDHOLD 05-21 11:44 → SSU 05-21 12:22
PROVIDERS: ADMIT Internal Medicine; ATTEND Hospitalist